=== PATIENT | female | born 1995 | race Caucasian/White ===

== ENCOUNTER 2024-05-16 14:05 | Emergency (ER) | payer OTHER, SELFPAY ==
[2024-05-16 14:11] VITALS: BP 152/91
[2024-05-16 14:33] LABS: % Basophils 0.6 % (0-2); % Eosinophils 0.6 % (0-6); % Immature Granulocytes 0.3 % (0-0.5); % Lymphocytes 27.5 % (20.5-51.1); % Monocytes 6.6 % (1.7-9.3); % Neutrophils 64.4 % (42.2-75.2); Absolute Lymphocytes 1.9 10^3/uL (1.2-3.4); Absolute Monocytes 0.5 10^3/uL (0.1-0.6); Absolute Neutrophils 4.4 10^3/uL (1.4-6.5); Hematocrit 43.7 % (37.0-47.0); Hemoglobin 14.3 g/dL (12.0-16.0); Mean Corp Hgb Conc. 32.7 g/dL (33.0-37.0); Mean Corpuscular Volume 88.6 fL (81.0-99.0); Mean Platelet Volume 10.9 fL (7.4-10.4); Nucleated Red Blood Cells % 0 %; Platelet Count 267 10^3/uL (130-400); Red Blood Cell Count 4.93 10^6/uL (4.20-5.40); Red Cell Dist. Width 12.5 % (11.5-14.5); White Blood Cell Count 6.8 10^3/uL (4.8-10.8)
[2024-05-16 14:53] LABS: HCG, Serum Qualitative Screen Negative
[2024-05-16 14:57] LABS: ALT (SGPT) 12 U/L (0-35); AST (SGOT) 16 U/L (14-36); Albumin 4.5 g/dl (3.5-5.0); Alkaline Phosphatase 66 U/L (38-126); Blood Urea Nitrogen 7 mg/dl (7-17); Calcium 9.6 mg/dl (8.4-10.2); Carbon Dioxide 23 mmol/L (22-30); Chloride 103 mmol/L (98-107); Glucose 103 mg/dl (70-99); Lipase 97 U/L (23-300); Potassium 4.2 mmol/L (3.5-5.1); Sodium 138 mmol/L (135-145); Total Bilirubin 1.2 mg/dl (0.2-1.3); Total Protein 7.1 g/dl (6.3-8.2); eGFR > 60.00
[2024-05-16] MEDS: OMNIPAQUE 50 ML PO (16:14)
--- NOTE | 2024-05-16 16:14 | ED.GENMED ---
History of Present Illness
General
Chief Complaint: Abdominal Pain
Source: patient
Exam Limitations: none
Time Seen by Provider: 05/16/24 15:56
Nursing documentation reviewed up to this point in time: agreed with
History of Present Illness
History of Present Illness:
Patient presents to ED secondary to persistent lower abdominal pain over the past 4 days. Abdominal pain described as crampy, nonradiating, worse when ambulating, mildly improved at rest. Patient endorses loss of appetite today. Denies fever or
chills. Denies nausea, vomiting, or diarrhea. Denies vaginal bleeding or discharge. Denies trauma. Denies recent change in activities. patient is currently taking Wegovy since July 2023, for weight loss, without any side effects. Patient is
sexually active with 1 partner, with intermittent use of protection. Denies previous history of sexually transmitted diseases.
Past History
Past History
ED Past Medical History: None
ED Past Surgical History: None
Social History
Tobacco: Non-smoker
Alcohol: None
Drug: None
Personal: Single
Living: with family
Employment: Student (College student)
Family History
Family History: Negative Diabetes
Review of Systems
Review of Systems
Allergies reviewed?: Yes
All Other Systems: ROS reviewed and negative except as documented in HPI and ROS
Constitutional: Reports no symptoms; Denies fever or chills
Respiratory: Reports no symptoms
Cardiac: Reports no symptoms
ABD/GI: Reports abdominal pain; Denies nausea, vomiting or diarrhea
: Reports no symptoms
Musculoskeletal: Reports no symptoms
Skin: Reports no symptoms
Neurological: Reports no symptoms
Phy Exam
Physical Exam
Physical Exam:
Physical Exam
General: mild painful distress, not acutely ill. afebrile.
Head: nc/at. eomi
Neck: supple. no meningeal signs.
Abdomen: normal bowel sounds. no distention. mild RLQ tenderness to palpation.
Neuro: alert and oriented. x 3. no focal neurological deficits
Skin: no rash
Psychiatric: well kept. interactive and cooperative
Extremities: no edema. no calf tenderness.
Course
Orders/Labs/Results
Orders:
Orders
05/16/24 14:16
Test Result ONCE
05/16/24 14:25
Complete Blood Count/With Diff Urgent
Comprehensive Metabolic Panel Urgent
HCG, Serum Qualitative Screen Urgent
Lipase Urgent
05/16/24 16:07
CT Abd/pel W Iv And Oral Contr Urgent
Comment:
Reason For Exam: RLQ pain w family hx crohn dz
Iohexol [Omnipaque] See Protocol PO NOW STA
05/16/24 16:08
0.9% Sodium Chloride 500 ml [Nss] 500 ml IV BOLUS
05/16/24 20:20
Amoxicillin 875 mg/Clav 125 mg [Augmentin 875 mg/125 mg] 1 tablet PO NOW STA
Abnormal Lab Results
05/16/24
14:25
MCHC 32.7 L g/dL
(33.0-37.0)
MPV 10.9 H fL
(7.4-10.4)
Glucose 103 H mg/dl
(70-99)
05/16/24 14:25
05/16/24 14:25
Vital Signs
Initial and Last Documented VS:
Initial Vital Signs
Temp Pulse Resp BP Pulse Ox
98.4 F 87 18 152/91 100
05/16/24 14:11 05/16/24 14:11 05/16/24 14:11 05/16/24 14:11 05/16/24 14:11
Last Documented Vital Signs
Temp Pulse Resp BP Pulse Ox
98.4 F 78 16 130/76 100
05/16/24 14:11 05/16/24 20:29 05/16/24 20:29 05/16/24 20:37 05/16/24 20:29
MDM/Problems Addressed
MDM/Problems Addressed:
CT report reviewed and discussed with patient. Patient will be started on Augmentin. Patient given copy of CT and report, to be discussed with her GI physician when she returns to [place]. Advised to return to ED with worsening symptoms,
i.e. fever/worsening pain/vomiting. Patient expresses understanding at time of discharge.
*Critical Care Note
Total Time (30-74mins, 75-104mins- exclusive of procedures): Not Applicable
ED Attending Note
-
Portions of this chart may have been created with voice recognition software.� Occasional wrong word or��sound alike� substitutions may have occurred due to the inherent limitations of voice recognition software.
Discharge Plan
Departure
Patient Disposition: Home (Routine Discharge)
Date of Disposition: 05/16/24
Time of Disposition: 20:21
Patient with high blood pressure during this ER visit?: Yes
Condition: Good
Discharge Problem:
Diverticulitis
Instructions: Diverticulitis (DC)
Prescriptions:
New
amoxicillin-pot clavulanate 875-125 mg tablet
1 tab PO Q12H Qty: 19 0RF
No Action
prednisone 50 MG tablet
50 mg PO DAILY Qty: 5 0RF
acetaminophen-codeine 10 ML solution
10 ml PO Q4HPRN PRN (Reason: sore throat) Qty: 240 0RF
Referrals:
PRIVATE,PHYSICIAN [Family Provider] -
Activity Restrictions/Additional Instructions:
As discussed, please follow-up with your primary care physician and/or GI physician for further evaluation and treatment. Please consider return to ED with worsening symptoms, i.e. fever/worsening pain/vomiting. Your prescription has been sent
electronically to [facility] pharmacy in [place]
Interventions
Interventions:
*Risk Screen - Suicide Last Done: 05/16/24 14:11
*General Assessment Last Done: 05/16/24 14:11
*Neglect/Abuse Screening Last Done: 05/16/24 14:11
*ED- Fall Risk Assessment Last Done: 05/16/24 16:26
*ED COVID-19 Vaccine History Last Done: 05/16/24 16:26
*Nursing Disposition Last Done: 05/16/24 20:45
BB-Goqxvw-Hxhmdqbebj Assessment Last Done: 05/16/24 16:26
Discharge Date and Time
Discharge Date/Time: 05/16/24 20:45
Print Language: [email or web address]
[2024-05-16] MEDS: NSS 500 IV (16:24)
[2024-05-16 16:28] VITALS: BP 141/74
[2024-05-16 17:00] VITALS: BP 142/80
[2024-05-16] MEDS: AUGMENTIN 875 MG/125 MG 1 TABLET PO (20:28)
[2024-05-16 20:37] VITALS: BP 130/76
== END 2024-05-16 20:45 | disposition home or self-care (01) ==
LOC: EMR 14:05
PROVIDERS: Student in an Organized Health Care Education/Training Program; EMERGENCY PHYSICIAN Emergency Medicine
DX: K57.32 Diverticulitis of large intestine without perforation or abscess without bleeding (principal)
CPT/HCPCS: 99284; 96360; 74177; 80053; 83690; 84703; 85025; Q9967